=== PATIENT | male | born 1980 | race Caucasian/White ===

== ENCOUNTER 2016-11-20 16:16 | Outpatient (CLI) | payer OTHER | END 2016-11-20 16:17 | disposition home or self-care (01) | DX: M19.072 Primary osteoarthritis, left ankle and foot (principal); M19.071 Primary osteoarthritis, right ankle and foot ==

== ENCOUNTER 2016-11-24 10:00 | Outpatient (CLI) | payer OTHER | END 2016-11-24 10:01 | disposition home or self-care (01) | DX: Z78.9 Other specified health status (principal) ==

== ENCOUNTER 2021-01-19 05:42 | Emergency (ER) | payer MEDICAID, OTHER ==
--- NOTE | 2021-01-19 06:23 | ED Physician Documentation ---
History of Present Illness - Stated complaint Stated Complaint: L ARM PX, NUMB L FINGERS - Chief complaint Chief Complaint: Cardiac - History obtained from History obtained from: Patient - Additonal information Additional information: 40yM Smoker with no past medical history presents with about 2 weeks of progressive tingling and numbness to the left fifth finger progressing to the left fourth finger as well as forearm., Reticulate numbness radiating occasionally to the arm. Patient denies any injury to the shoulder, arm or hand and denies neck injury, but does state that his neck is often tight and that he cracks a lot. He also does endorse some intermittent shortness of breath when walking uphill on 30-minute walks with his dog. Patient has a chronic cough that he believes is nonworsening and is usually nonproductive. Denies hemoptysis. Denies fever, chills, nausea or vomiting, pleurisy, leg swelling, back pain. Of note, he states he always has lymph nodes popping up in his BL nec k and also has nonpainful small balls under the skin of his forearm that he thinks are lymph nodes and have been there for years, unchanging. Review of Systems Constitutional: denies: Fever Cardiac: denies: Chest pain / pressure Respiratory: reports: Dyspnea, Cough GI: denies: Abdominal Pain, Nausea Skin: denies: Rash Neurologic: reports: Numbness. denies: Focal weakness PD PAST MEDICAL HISTORY - Allergies Allergies/Adverse Reactions: Allergies Allergy/AdvReac Type Severity Reaction Status Date / Time No Known Drug Allergies Allergy Verified 01/19/21 06:00 PD ED PE NORMAL - Vitals Vital signs reviewed: Yes - General General: Alert and oriented X 3, No acute distress, Well developed/nourished - HEENT HEENT: Atraumatic, PERRL, EOMI - Neck Neck: Supple, no meningeal sign - Cardiac Cardiac: RRR - Respiratory Respiratory: No respiratory distress, Clear bilaterally - Abdomen Abdomen: Non tender, Non distended - Derm Derm: Normal color, Warm and dry - Extremities Extremities: No deformity - Neuro Neuro: Alert and oriented X 3, Other (subjective numbness to fourth and fifth digits of LUE, nonreproducible on exam) - Psych Psych: Normal mood, Normal affect Results - Vitals Vitals: Vital Signs - 24 hr 01/19/21 01/19/21 01/19/21 05:51 05:54 06:34 Temperature 36.5 C 36.5 C 36.5 C Heart Rate 80 80 74 Respiratory 20 20 16 Rate Blood Pressure 120/92 H 120/92 H 132/88 H O2 Saturation 99 99 99 01/19/21 07:05 Temperature 36.5 C Heart Rate 68 Respiratory 15 Rate Blood Pressure 127/88 H O2 Saturation 98 Oxygen O2 Source Room air - EKG (time done) 0550 Rate: Rate (enter#) (75) [place]: Normal Intervals: Normal ME QRS: Normal Ischemia: Normal ST segments - Labs Labs: Laboratory Tests 01/19/21 01/19/21 01/19/21 06:03 06:03 06:03 WBC 6.8 RBC 4.84 Hgb 15.9 Hct 43.7 MCV 90.3 MCH 32.9 H MCHC 36.4 H RDW 11.9 L Plt Count 221 MPV 9.3 Neut # (Auto) 3.8 Lymph # (Auto) 2.0 [place] # (Auto) 0.6 Eos # (Auto) 0.4 Baso # (Auto) 0.1 Absolute Nucleated RBC 0.00 Nucleated RBC % 0.0 VBG pH VBG pCO2 VBG pO2 VBG HCO3 VBG Total CO2 VBG O2 Saturation VBG Base Excess Sodium 135 Potassium 3.9 Chloride 102 Carbon Dioxide 22 Anion Gap 11.0 BUN 14 Creatinine 0.8 Estimated GFR (MDRD) 106 Glucose 100 Calcium 9.2 Total Bilirubin 0.9 AST 19 ALT 16 Alkaline Phosphatase 86 Troponin I High Sens 2.6 Total Protein 7.3 Albumin 4.1 Globulin 3.2 Albumin/Globulin Ratio 1.3 Lipase 30 01/19/21 06:30 WBC RBC Hgb Hct MCV MCH MCHC RDW Plt Count MPV Neut # (Auto) Lymph # (Auto) [place] # (Auto) Eos # (Auto) Baso # (Auto) Absolute Nucleated RBC Nucleated RBC % VBG pH 7.439 H VBG pCO2 40.2 L VBG pO2 25.6 VBG HCO3 26.6 VBG Total CO2 27.9 VBG O2 Saturation 59.2 L VBG Base Excess 2.3 H Sodium Potassium Chloride Carbon Dioxide Anion Gap BUN Creatinine Estimated GFR (MDRD) Glucose Calcium Total Bilirubin AST ALT Alkaline Phosphatase Troponin I High Sens Total Protein Albumin Globulin Albumin/Globulin Ratio Lipase PD MEDICAL DECISION MAKING - ED course ED course: PERC negative. Heart score 1 (smoker). Patient with atypical symptoms in the emergency department and finger numbness concerning for ulnar neuropathy. I am going to refer him to a primary doctor and will have him follow-up for further management and care. Strict return precautions given. Departure - Departure Disposition: 01 Home, Self Care Clinical Impression: Ulnar neuropathy, Smoker, Dyspnea, Lipoma of arm Condition: Good Instructions: Lipoma, ED Dyspnea Shortness of Breath Follow-Up: Jonh Jama MD [Provider Admit Priv/Credential] - Beata Hyatt MD [Provider Admit Priv/Credential] - Comments: You were seen in the emergency department for numbness and pain to the arm, forearm and fingers as well as some shortness of breath. Your lab work, EKG, chest x-ray were unremarkable. Please cut back or stop smoking. An ultrasound was done and showed lipoma in your forearm. It is possible that a lipoma is pressing on the ulnar nerve at your wrist and causing your symptoms. You can arrange follow-up outpatient with a general surgeon to have it removed. If they change suddenly in size, become painful or red, come into the emergency department and we will reevaluate. Return to the emergency department if you have any new or worsening symptoms or other concerns.
[2021-01-19 06:25] LABS: BASOPHILS # (AUTO) 0.1 10^3/uL (0.0-0.1); EOSINOPHILS # (AUTO) 0.4 10^3/uL (0.0-0.7); EOSINOPHILS % (AUTO) 5.1 %; HCT - HEMATOCRIT 43.7 % (42.0-52.0); HGB - HEMOGLOBIN 15.9 g/dL (14.0-18.0); LYMPHOCYTES % (AUTO) 29.6 %; MEAN CORPUSCULAR HEMOGLOBIN 32.9 pg (27.0-31.0); MEAN CORPUSCULAR HGB CONC 36.4 g/dL (32.0-36.0); MEAN CORPUSCULAR VOLUME 90.3 fL (80.0-94.0); MEAN PLATELET VOLUME 9.3 fL (7.4-11.4); MONOCYTES # (AUTO) 0.6 10^3/uL (0.0-1.0); MONOCYTES % (AUTO) 9.1 %; NEUTROPHILS # (AUTO) 3.8 10^3/uL (1.5-6.6); NEUTROPHILS % (AUTO) 55.1 %; PLT - PLATELET COUNT 221 10^3/uL (130-450); RED BLOOD COUNT 4.84 10^6/uL (4.70-6.10); RED CELL DISTRIBUTION WIDTH 11.9 % (12.0-15.0); WHITE BLOOD COUNT 6.8 x10^3/uL (4.8-10.8)
[2021-01-19 06:35] LABS: VBG BASE EXCESS 2.3 mmol/L ({null, -2 - +2}); VBG HCO3 26.6 mmol/L (23-28); VBG OXYGEN SATURATION 59.2 % (60-80); VBG PCO2 40.2 mmHg (41-51); VBG PH 7.439 (7.31-7.41); VBG PO2 25.6 mmHg (25-47); VBG TOTAL CO2 27.9 mmol/L (24-29)
[2021-01-19 06:36] LABS: ALBUMIN 4.1 g/dL (3.2-5.5); ALBUMIN/GLOBULIN RATIO 1.3 (1.0-2.2); BILIRUBIN,TOTAL 0.9 mg/dL (0.2-1.0); CALCIUM 9.2 mg/dL (8.5-10.3); CREATININE 0.8 mg/dL (0.6-1.2); POTASSIUM 3.9 mmol/L (3.5-5.0); TOTAL PROTEIN 7.3 g/dL (6.7-8.2)
--- NOTE | 2021-01-19 08:20 | Ultrasound Report ---
PROCEDURE: Ext Limited Non Vascular INDICATIONS: masses on L forearm and wrist TECHNIQUE: Real-time scanning was performed of the left forearm and wrist, with image documentation. COMPARISON: None. FINDINGS: 1.9 x 1.6 x 0.5 cm solid appearing oval nodule is noted in proximal and anterior aspect of left forea rm and appears isoechoic to adjacent subcutaneous fat. 1.7 x 1 x 0.4 cm similar echogenicity structure is noted in anterior aspect of mid forearm. 1.2 x 1 x 0.3 cm similar echogenicity structure is seen in posterior mid forearm. No solid or cystic lesion is seen in anterior medial aspect of left distal forearm/wrist at patient's reported area of palpable lump. IMPRESSION: Finding likely represent at least 3 lipomas in forearm soft tissue as described above. Clinical and s onographic follow-up is recommended. Reviewed by: Garo Newell MD on 01/19/2021 8:18 AM PDT Approved by: Garo Newell MD on 01/19/2021 8:18 AM PDT Station ID: [id number]
[2021-01-19 08:27] VITALS: BP 128/86
--- NOTE | 2021-01-19 08:58 | XRAY Report ---
PROCEDURE: Chest 1 View X-Ray INDICATIONS: Chest Pain TECHNIQUE: One view of the chest was acquired. COMPARISON: None. FINDINGS: Surgical changes and devices: None. Lungs and pleura: No pleural effusions or pneumothorax. Lungs are clear. Mediastinum: Mediastinal contours appear normal. Heart size is normal. Bones and chest wall: No suspicious bony lesions. Overlying soft tissues appear unremarkable. IMPRESSION: No acute disease Reviewed by: Parminder Ervin MD on 01/19/2021 8:57 AM PDT Approved by: Parminder Ervin MD on 01/19/2021 8:57 AM PDT Station ID: [id number]
== END 2021-01-19 08:27 | disposition home or self-care (01) ==
LOC: ED 05:42
DX: G56.22 Lesion of ulnar nerve, left upper limb (principal); R06.00 Dyspnea, unspecified; D17.22 Benign lipomatous neoplasm of skin and subcutaneous tissue of left arm; F17.200 Nicotine dependence, unspecified, uncomplicated
CPT/HCPCS: 36415; 80053; 82803; 83690; 84484; 85025; 93005; 99284

== ENCOUNTER 2022-07-04 07:06 | Day surgery (SDC) | payer MEDICAID ==
[~2022-07-04 07:06] MED LIST: CEFAZOLIN 2G/50ML 0.9% NS 2 GM/50 ML BAG IV ONE; metroNIDAZOLE 500 MG/100 ML 500 MG/100 ML BAG ONE
[2022-07-04] MEDS ORDERED: LACTATED RINGERS 1,000 ML IV ONE ×2 (07:09→10:49)
[2022-07-04] MEDS ORDERED: BUPIVACAINE 0.25% PF 10 ML VIAL ONE (07:54)
[2022-07-04] MEDS ORDERED: DEXAMETHASONE 4 MG/ML VIAL ONE (08:21)
[2022-07-04] MEDS ORDERED: PROPOFOL 200 MG/20 ML VIAL IVP ONE ×2 (08:21→10:18)
[2022-07-04] MEDS ORDERED: MIDAZOLAM 2 MG/2 ML VIAL ONE ×2 (08:21→08:32)
[2022-07-04] MEDS ORDERED: fentaNYL 100 MCG/2 ML VIAL ONE ×2 (08:21→09:04)
[2022-07-04] MEDS ORDERED: ROCURONIUM 50 MG/5 ML VIAL ONE ×2 (08:21→10:18)
[2022-07-04] MEDS ORDERED: ONDANSETRON 4 MG/2 ML VIAL ONE (08:21)
--- NOTE | 2022-07-04 09:09 | ANESTHESIA ---
Pre-Anesthesia VS, & Labs - Diagnosis RUPTURED APPENDIX - Procedure LAPAROSCOPIC APPENDECTOMY Vital Signs: Temp Pulse Resp BP Pulse Ox O2 Flow Rate 36.6 C 65 14 127/79 96 07/04/22 07:28 07/04/22 07:28 07/04/22 07:28 07/04/22 07:28 07/04/22 07:28 Height: 6 ft 3 in Weight (kg): 106.7 kg Body Mass Index: 29.4 BMI Classification: Overweight - NPO >8 hours Home Medications and Allergies Allergies/Adverse Reactions: Allergies Allergy/AdvReac Type Severity Reaction Status Date / Time No Known Drug Allergies Allergy Verified 04/30/22 05:50 Anes History & Medical History - Anesthetic History Anesthesia Complications: reports: No previous complications Family history of Anesthesia Complications: Denies Family history of Malignant Hyperthermia: Denies - Medical History Cardiovascular: reports: None Pulmonary: reports: None Gastrointestinal: reports: GERD (INTERMITTENT; Pt reports decreased symptoms since decreasing coca-cola intake last month; Takes Tums PRN) Urinary: reports: None Neuro: reports: None Musculoskeletal: reports: None Endocrine/Autoimmune: reports: None Blood Disorders: reports: None Skin: reports: None Smoking Status: Heavy tobacco smoker Psychosocial: reports: Alcohol (24oz Beers x6 daily), Cannabis (Daily, thro ughout the day) History of Cancer?: No - Surgical History Eyes Ears Nose Throat (EENT): reports: Other ([place] Teeth Removal) Exam General: Alert, Oriented x3, Cooperative, No acute distress Mouth Opening: Greater than 4 Fingerbreadths Neck Mobility: Normal Mallampati classification: I Thyromental Distance: 4-6 cm Respiratory: Normal breath sounds Cardiovascular: Regular rate Mental/Cognitive Status: Alert/Oriented X3, Normal for patient Cognitive Status: Within normal limits Plan Anesthesia Type: General Consent for Procedure(s) Verified and Reviewed: Yes Code Status: Attempt Resuscitation ASA classification: 2-Mild systemic disease Is this case an emergency?: No
[2022-07-04] MEDS ORDERED: BUPIVACAINE 0.25% PF 10 ML VIAL SUBQ ONE (09:10)
[2022-07-04] MEDS ORDERED: fentaNYL 100 MCG/2 ML VIAL IVP PRN (09:31)
[2022-07-04] MEDS ORDERED: MORPHINE 2 MG/ML CARPUJECT IVP PRN (09:31)
[2022-07-04] MEDS ORDERED: ONDANSETRON 4 MG/2 ML VIAL IVP PRN (09:31)
[2022-07-04] MEDS ORDERED: HYDROmorphone 0.5 MG/0.5 ML SYRINGE IVP PRN (09:31)
[2022-07-04] MEDS ORDERED: NALOXONE 0.4 MG/ML VIAL IVP PRN (09:31)
[2022-07-04] MEDS ORDERED: ATROPINE ABBOJECT 1 MG/10 ML SYRINGE IVP PRN (09:31)
[2022-07-04] MEDS ORDERED: LACTATED RINGERS 1,000 ML IV SCH (10:00)
[2022-07-04] MEDS ORDERED: SUGAMMADEX 200 MG/2 ML VIAL IVP ONE (10:32)
[2022-07-04] MEDS ORDERED: HYDROmorphone 1 MG/ML CARPUJECT ONE (10:36)
[2022-07-04] MEDS ORDERED: HYDROcod/ACETAM 5/325 MG TABLET PO PRN (10:45)
--- NOTE | 2022-07-04 11:18 | ANESTHESIA POST OP EVALUATION ---
Anesthesia Post Eval - Post Anesthesia Eval Vitals: Last Vital Signs Temp 37.1 C 07/04/22 11:11 Pulse 72 07/04/22 11:11 Resp 18 07/04/22 11:11 BP 129/88 H 07/04/22 11:11 Pulse Ox 93 07/04/22 11:11 O2 Flow Rate CV Function Including HR & BP: Stable Pain Control: Satisfactory Nausea & Vomiting: Negative Mental Status: Baseline Respiratory Status: Airway Patent Hydration Status: Satisfactory Anesthesia Complications: None
[2022-07-04 12:24] VITALS: BP 134/78
--- NOTE | 2022-07-04 13:29 | OPERATIVE REPORT ---
Operative Report - General Procedure Date: 07/04/22 Planned Procedure: laparoscopy appendectomy/ interval Pre-Op Diagnosis: history ruptured appendix Procedure Performed: laparoscopic appendectomy umbilical hernia repair Post Op Diagnosis: history ruptured appendix. umbilical hernia present, 1cm - Procedure Note Primary Surgeon: nancy crum md Anesthesia Technique: General ET tube, Local Pathology: appendix Estimated Blood Loss (mL): 10 Drain/Tube Type: Other (none) Indications: history ruptured appendix Findings: appendix was very sclerotic and shrunken. had ruptured close to the base and sealed off. appendix was in 2 pieces Complications: none - Other Other Information/Narrative: the patient was properly identified brought to the operating room and placed in supine position. The patient was previously given antibiotics. Sequential compression devices were placed. General endotracheal anesthesia was induced. The patient was prepped and draped in a sterile fashion. Local anesthetic was given to incision areas. An infraumbilical incision was made in and proceeded down to the fascia. A 1 cm umbilical hernia was identified. The fascia was incised lifted upwards and abdomen entered with a Veress needle. CO2 was insufflated to a pressure of 15. A 12 mm trocar was placed with 30 degree scope. There was no evidence of injury from Veress needle or trocar placement. Under direct vision a 5 mm trocar was placed suprapubic and a 5 mm trocar was placed in the right upper quadrant. He had a retrocecal appendix that was also under the terminal ileum. The terminal ileum was mobilized to allow identification of the appendix. The appendix was in 2 pieces. The appendix had previously ruptured. The stump had healed over. The stump was approximately 1.5 cm long. The appendix was very shrunken and sclerotic. Appendix was identified and retracted anteriorly. Peritoneal attachments were taken down with careful use of cautery. Appendix was mobilized more anterior. A plane was then created between the mesoappendix and the appendix at the cecum. Appendix was divided with an Endo SPEEDY intestinal load to include up a small portion of the cecum. The mesoappendix was then divided with an Endo SPEEDY vascular load. There was secure closure at the cecum and hemostasis was assured. The appendix was brought out. The abdomen was thoroughly irrigated and hemostasis again assured. Trochars were removed under direct vision. Fascia at the umbilical hernia was closed with a running 0 Vicryl suture. Subcutaneous tissue was irrigated and skin reapproximated with buried interrupted 4-0 Monocryl. Dressings were applied. The patient tolerated the procedure well was awakened and brought to recovery in good condition.
== END 2022-07-04 07:07 | disposition home or self-care (01) ==
LOC: SDS 07:06
PROVIDERS: ATTEND Surgery
PROC: 0DTJ4ZZ Resection of Appendix, Percutaneous Endoscopic Approach (ICD-10-PCS; principal; 2022-07-04 08:30)
DX: K35.32 Acute appendicitis with perforation, localized peritonitis, and gangrene, without abscess (principal); K42.9 Umbilical hernia without obstruction or gangrene; F17.200 Nicotine dependence, unspecified, uncomplicated
CPT/HCPCS: 44970; J0690; J1170; J7120